=== PATIENT | male | born 1960 | race Two or more races ===

== ENCOUNTER 2019-10-18 00:21 | Emergency (ER) | payer OTHER ==
[~2019-10-18] VITALS: Ht 172.7 cm; Wt 86.2 kg
[2019-10-18] MEDS ORDERED: MAXITROL EYE DRO5 ML OP (01:04)
== END 2019-10-18 01:42 | disposition home or self-care (01) ==
LOC: ER 00:21
DX: S05.32XA Ocular laceration without prolapse or loss of intraocular tissue, left eye, initial encounter (principal); W45.8XXA Other foreign body or object entering through skin, initial encounter; Y93.89 Activity, other specified; Y92.098 Other place in other non-institutional residence as the place of occurrence of the external cause; Y99.8 Other external cause status